=== PATIENT | male | born 1995 | race Caucasian/White ===

== ENCOUNTER 2021-10-12 11:16 | Emergency (ER) | payer SELFPAY ==
[2021-10-12 11:57] VITALS: BP 118/75; PULSE 93; RESP 16; TEMP 36.5; O2SAT 98; BMI 28.2
--- NOTE | 2021-10-12 12:26 | XRR_ITS ---
PROCEDURE INFORMATION: Exam: XR Abdomen Exam date and time: 10/12/2021 12:26 PM Age: 26 years old Clinical indication: Abdominal pain; Localized; Right lower quadrant (rlq); Additional info: Abd pain TECHNIQUE: Imaging protocol: XR of the abdomen. Views: Frontal supine view of the abdomen. 1 View. COMPARISON: CR Chest 1 [place] [id number] 04/27/2018 5:43 PM FINDINGS: Gastrointestinal tract: Normal. No bowel dilation. Bones/joints: Unremarkable. XR/XR KUB portable [id number] IMPRESSION: No acute findings.
--- NOTE | 2021-10-12 12:38 | W.ED.ABDPA2 ---
Documented by User: BEAR Beasley 10/12/21 16:20 HPI - Abdominal Pain General: Chief Complaint: Abdominal Pain Stated Complaint: Abd pain in appendix area Time Seen by Provider: 10/12/21 12:09 History of Present Illness: HPI narrative: Patient states he has had right lower quadrant to right upper quadrant abdominal pain over the last couple days that is progressively worsening. Patient denies any fever chills. Patient does have some nausea. Denies any problems bowel or bladder. Denies any injury. No significant medical history. MD elicited complaint: abdominal pain Onset (ago): day(s) Pain Consistency: constant Location: RUQ and RLQ Severity: mild Quality: aching Radiation: RUQ Migration to: no migration Exacerbating factors: nothing Relieving factors: nothing Associated Symptoms: Reports no associated symptoms; Denies chills, fever(s), nausea and vomiting Review of Systems Const: Denies: fever(s), chills or body aches Eyes: Denies: change in vision or blurry vision ENMT: Denies: throat pain or nasal congestion Card: Denies: chest pain or dyspnea on exertion Resp: Denies: dyspnea, productive cough or non-productive cough GI: Reports: abdominal pain; Denies: nausea or vomiting : Denies: difficulty urinating Musc: Denies: extremity pain Skin/Breast: Denies: rash Neuro: Denies: headache(s) Psych: Denies: anxiety or depression Damir/Lymph: Denies: easy bruising Physical Exam Const: COMMON NORMALS: no acute distress, average body habitus and patient oriented x3 HENMT: COMMON NORMALS: normocephalic HEAD & SCALP: normal to inspection and normocephalic FACE & SINUS: normal facial exam Eye: COMMON NORMALS: conjunctivae normal GENERAL EYE: appearance normal, both eyes and all related structures CONJUNCTIVA: Yes conjunctivae normal Neck/C-Spine: COMMON NORMALS: no JVD Chest: COMMONS NORMALS: normal inspection of the chest Resp: COMMON NORMALS: normal respiratory effort and clear to auscultation bilaterally AUSCULTATION: clear to auscultation bilaterally Cardio: COMMON NORMALS: no JVD, regular rate and regular rhythm RATE: regular rate RHYTHM: regular rhythm GI: INSPECTION: Yes normal to inspection AUSCULTATION: Yes normoactive bowel sounds PALPATION: Yes Tenderness to palpation present (GI) Details: RLQ and RUQ Extremity: COMMON NORMALS: normal to inspection and full ROM Neuro: COMMON NORMALS: patient oriented x3 Course Vital Signs: Vital signs: Vital Signs Temperature 97.8 F 10/12/21 15:30 Pulse Rate 91 10/12/21 15:30 Respiratory Rate 16 10/12/21 15:30 Blood Pressure 121/72 10/12/21 15:30 Pulse Oximetry 99 10/12/21 15:30 MDM - Abdominal Pain MDM Narrative: Medical decision making narrative: Patient presents with right-sided abdominal pain times last couple days. Abdominal pain work-up was initiated and laboratory studies including blood and urine was negative for any concerning findings. KUB and CT of the abdomen were done and CT revealed some mild enteritis, possibly irritable bowel syndrome. Patient denies any history of any abdominal problems previously. Patient declines pain medication. Patient was advised follow-up primary care return here for worsening symptoms drink plenty of fluids and good healthy diet. Lab Data: Labs: Lab Results 10/12/21 10/12/21 10/12/21 13:55 14:00 14:00 WBC 6.0 10^3/uL 10^3/ uL (4.0-10.0) RBC 5.45 10^6/uL H 10 ^6/uL (4.1-5.3) Hgb 15.6 g/dL g/dL (11.7-16.6) Hct 47.5 % % (42.0-52.0) MCV 87.2 fl fl (80-94) MCH 28.6 pg pg (28.0-34.0) MCHC 32.8 g/dL g/dL (30.0-36.0) RDW 14.4 % % (12.1-15.1) Plt Count 306 10^3/cmm 10^3 /cmm (130-400) MPV 9.6 fL fL (7.4-10.4) Neut % (Auto) 50.1 % % Lymph % (Auto) 31.0 % % [place] % (Auto) 12.6 % % Eos % (Auto) 5.3 % % Baso % (Auto) 0.7 % % Neut # (Auto) 3.02 10^3/uL 10^3 /uL (1.8-7.7) Lymph # (Auto) 1.9 10^3/uL 10^3/ uL (0.8-4.8) [place] # (Auto) 0.8 10^3/uL 10^3/ uL (0.2-0.9) Eos # (Auto) 0.3 10^3/uL 10^3/ uL (0.0-0.8) Baso # (Auto) 0.0 10^3/uL 10^3/ uL (0.0-0.1) Nucleated RBC % (a uto) 0 % % Nucleated RBCs # 0.0 /100WBC /100W BC Sodium Cancelled Potassium Cancelled Chloride Cancelled Carbon Dioxide Cancelled Anion Gap Cancelled BUN Cancelled Creatinine Cancelled GFR Calculation Cancelled Glucose Cancelled Calculated Osmolal ity Cancelled Calcium Cancelled Total Bilirubin Cancelled AST Cancelled ALT Cancelled Alkaline Phosphata se Cancelled Total Protein Cancelled Albumin Cancelled Globulin Cancelled Lipase Cancelled Urine Color Yellow (Yellow) Urine Appearance Clear (CLEAR) Urine pH 5 (5-7) Ur Specific Gravit y 1.025 (1.005-1.030) Urine Protein Neg (Negative) Urine Glucose (UA) Norm (Normal) Urine Ketones Negative (Negative) Urine Blood Neg (Negative) Urine Nitrate Negative (Negative) Urine Bilirubin Neg (Negative) Urine Urobilinogen Norm mg/dL mg/dL (Negative) Ur Leukocyte Rosmery ase Negative (Negative) 10/12/21 14:00 WBC RBC Hgb Hct MCV MCH MCHC RDW Plt Count MPV Neut % (Auto) Lymph % (Auto) [place] % (Auto) Eos % (Auto) Baso % (Auto) Neut # (Auto) Lymph # (Auto) [place] # (Auto) Eos # (Auto) Baso # (Auto) Nucleated RBC % (a uto) Nucleated RBCs # Sodium 137 mmol/L mmol/L (136-145) Potassium 5.0 mmol/L mmol/L (3.5-5.1) Chloride 101 mmol/L mmol/L (98-107) Carbon Dioxide 24 mmol/L mmol/L (22-29) Anion Gap 17.0 (5-19) BUN 11 mg/dL mg/dL (6-20) Creatinine 1.0 mg/dL mg/dL (0.7-1.2) GFR Calculation 90.3 mL/min mL/mi n (90-130) Glucose 78 mg/dL mg/dL (65-115) Calculated Osmolal ity 282 mOsm/kg L mOs m/kg (285-295) Calcium 9.0 mg/dL mg/dL (8.5-10.5) Total Bilirubin 0.3 mg/dL mg/dL (0.15-1.2) AST 19 U/L U/L (0-40) ALT 15 U/L U/L (0-41) Alkaline Phosphata se 79 IU/L IU/L (40-130) Total Protein 6.8 g/dL g/dL (6.6-8.7) Albumin 4.3 g/dL g/dL (3.5-5.2) Globulin 2.5 g/dL g/dL (1.3-4.6) Lipase 20 U/L U/L (13-60) Urine Color Urine Appearance Urine pH Ur Specific Gravit y Urine Protein Urine Glucose (UA) Urine Ketones Urine Blood Urine Nitrate Urine Bilirubin Urine Urobilinogen Ur Leukocyte Rosmery ase Discharge Plan Discharge Patient Disposition: Home Clinical Impression: Abdominal pain Qualifiers: Abdominal location: upper abdomen, unspecified Qualified Code(s): R10.10 - Upper abdominal pain, unspecified Condition: Stable Discharge Orders: Discharge ED (Routine); Ordered 10/12/21 Ordered By: Cas Back Discharge Diet: Usual diet Discharge Activity: Increase activity as tolerated Patient Instructions: Abdominal Pain (ED) Activity Restrictions/Additional Instructions: Follow-up your primary care provider or return here for worsening symptoms. Make sure you drink plenty of fluids. You most likely have a viral syndrome was causing inflammation in your colon. Coding Level of Care Code ED Operations Support Manager for Chg Fwd Exam Comprehensive Documented by User: Aydin Light DO 10/15/21 06:18 HPI - Abdominal Pain General: Chief Complaint: Abdominal Pain Stated Complaint: Abd pain in appendix area Time Seen by Provider: 10/12/21 12:09 Course Vital Signs: Vital signs: Vital Signs Temperature 97.8 F 10/12/21 15:30 Pulse Rate 91 10/12/21 15:30 Respiratory Rate 16 10/12/21 15:30 Blood Pressure 121/72 10/12/21 15:30 Pulse Oximetry 99 10/12/21 15:30 MDM - Abdominal Pain MDM Narrative: Medical decision making narrative: Chart reviewed and patient discussed with midlevel. Agree with assessment and plan. Lab Data: Labs: Lab Results 10/12/21 10/12/21 10/12/21 13:55 14:00 14:00 WBC 6.0 10^3/uL 10^3/ uL (4.0-10.0) RBC 5.45 10^6/uL H 10 ^6/uL (4.1-5.3) Hgb 15.6 g/dL g/dL (11.7-16.6) Hct 47.5 % % (42.0-52.0) MCV 87.2 fl fl (80-94) MCH 28.6 pg pg (28.0-34.0) MCHC 32.8 g/dL g/dL (30.0-36.0) RDW 14.4 % % (12.1-15.1) Plt Count 306 10^3/cmm 10^3 /cmm (130-400) MPV 9.6 fL fL (7.4-10.4) Neut % (Auto) 50.1 % % Lymph % (Auto) 31.0 % % [place] % (Auto) 12.6 % % Eos % (Auto) 5.3 % % Baso % (Auto) 0.7 % % Neut # (Auto) 3.02 10^3/uL 10^3 /uL (1.8-7.7) Lymph # (Auto) 1.9 10^3/uL 10^3/ uL (0.8-4.8) [place] # (Auto) 0.8 10^3/uL 10^3/ uL (0.2-0.9) Eos # (Auto) 0.3 10^3/uL 10^3/ uL (0.0-0.8) Baso # (Auto) 0.0 10^3/uL 10^3/ uL (0.0-0.1) Nucleated RBC % (a uto) 0 % % Nucleated RBCs # 0.0 /100WBC /100W BC Sodium Cancelled Potassium Cancelled Chloride Cancelled Carbon Dioxide Cancelled Anion Gap Cancelled BUN Cancelled Creatinine Cancelled GFR Calculation Cancelled Glucose Cancelled Calculated Osmolal ity Cancelled Calcium Cancelled Total Bilirubin Cancelled AST Cancelled ALT Cancelled Alkaline Phosphata se Cancelled Total Protein Cancelled Albumin Cancelled Globulin Cancelled Lipase Cancelled Urine Color Yellow (Yellow) Urine Appearance Clear (CLEAR) Urine pH 5 (5-7) Ur Specific Gravit y 1.025 (1.005-1.030) Urine Protein Neg (Negative) Urine Glucose (UA) Norm (Normal) Urine Ketones Negative (Negative) Urine Blood Neg (Negative) Urine Nitrate Negative (Negative) Urine Bilirubin Neg (Negative) Urine Urobilinogen Norm mg/dL mg/dL (Negative) Ur Leukocyte Rosmery ase Negative (Negative) 10/12/21 14:00 WBC RBC Hgb Hct MCV MCH MCHC RDW Plt Count MPV Neut % (Auto) Lymph % (Auto) [place] % (Auto) Eos % (Auto) Baso % (Auto) Neut # (Auto) Lymph # (Auto) [place] # (Auto) Eos # (Auto) Baso # (Auto) Nucleated RBC % (a uto) Nucleated RBCs # Sodium 137 mmol/L mmol/L (136-145) Potassium 5.0 mmol/L mmol/L (3.5-5.1) Chloride 101 mmol/L mmol/L (98-107) Carbon Dioxide 24 mmol/L mmol/L (22-29) Anion Gap 17.0 (5-19) BUN 11 mg/dL mg/dL (6-20) Creatinine 1.0 mg/dL mg/dL (0.7-1.2) GFR Calculation 90.3 mL/min mL/mi n (90-130) Glucose 78 mg/dL mg/dL (65-115) Calculated Osmolal ity 282 mOsm/kg L mOs m/kg (285-295) Calcium 9.0 mg/dL mg/dL (8.5-10.5) Total Bilirubin 0.3 mg/dL mg/dL (0.15-1.2) AST 19 U/L U/L (0-40) ALT 15 U/L U/L (0-41) Alkaline Phosphata se 79 IU/L IU/L (40-130) Total Protein 6.8 g/dL g/dL (6.6-8.7) Albumin 4.3 g/dL g/dL (3.5-5.2) Globulin 2.5 g/dL g/dL (1.3-4.6) Lipase 20 U/L U/L (13-60) Urine Color Urine Appearance Urine pH Ur Specific Gravit y Urine Protein Urine Glucose (UA) Urine Ketones Urine Blood Urine Nitrate Urine Bilirubin Urine Urobilinogen Ur Leukocyte Rosmery ase Discharge Plan Discharge Patient Disposition: Home Clinical Impression: Abdominal pain Qualifiers: Abdominal location: upper abdomen, unspecified Qualified Code(s): R10.10 - Upper abdominal pain, unspecified Condition: Stable Discharge Orders: Discharge ED (Routine); Ordered 10/12/21 Ordered By: Cas Back Discharge Diet: Usual diet Discharge Activity: Increase activity as tolerated Patient Instructions: Abdominal Pain (ED) Activity Restrictions/Additional Instructions: Follow-up your primary care provider or return here for worsening symptoms. Make sure you drink plenty of fluids. You most likely have a viral syndrome was causing inflammation in your colon. Coding Level of Care Code ED Operations Support Manager for Amandag Fwd Exam Comprehensive
--- NOTE | 2021-10-12 13:03 | CT_ITS ---
WS: [id number] CT ABDOMEN AND PELVIS WITH CONTRAST HISTORY: RIGHT lower quadrant pain for 4 days or increasing. TECHNIQUE: Imaging performed of the abdomen and pelvis with IV contrast. Single phase imaging of the abdomen. Coronal and sagittal reformats are submitted. All CT scans at [facility] use at [address] one of these dose optimization techniques: automated exposure control; mA and/or kV adjustment per patient size (includes targeted exams where dose is matched to clinical indication); or iterative re construction. IV CONTRAST: Omnipaque 300; 95 mL IV. Oral contrast: No DLP: 1915.14 mGy.cm COMPARISON: 02/10/2014 Lower thorax: Lung bases are clear. Heart is normal size. No hiatal hernia. Liver/biliary system: Normal size liver. Mild hepatic steatosis along the falciform ligament. There i s a small cyst medial segment LEFT lobe of the liver. Normal portal vein. Gallbladder: Normal. No gallstones or wall thickening. No pericholecystic fluid. Pancreas: Normal size pancreas and pancreatic duct. No adjacent inflammation. Spleen: Normal size spleen. No mass or infarct. Adrenal glands: Normal. Right kidney: Normal. Left kidney: Normal. Aorta: Normal. Lymphadenopathy: There are several very small mesenteric lymph nodes. No adenopathy. Free fluid: None. GI tract: The appendix is normal and well visualized. There is very mild thickening involving the dis virgen small bowel loops with mild hyperemia. No free fluid. No increase fluid within the small bowel. Abdominal wall: Unremarkable abdominal wall. No hernia. Pelvis: Nondistended urinary bladder. No free fluid or adenopathy. Bones: Mild LEFT curvature lumbar spine. CT/CT abdomen pelvis w con* [id number] IMPRESSION: 1. Normal appendix. 2. Mild wall thickening and edema within the distal small bowel. Findings are most consistent with acute mild enteritis. Consider inflammatory bowel disease is a possible etiology. 3. No free fluid.
[2021-10-12] MEDS: iohexol 300 mg/mL 100 mL Btl IV (14:02)
[2021-10-12 14:07] LABS: Add Urine Microscopic? NO; Charge for UA Resulting for Rev
[2021-10-12 14:18] LABS: Bilirubin Urine Neg (Negative); Blood Urine Neg (Negative); Glucose Urine UA Norm (Normal); Ketones Urine Negative (Negative); Leukocyte Esterase Urine Negative (Negative); Nitrate Urine Negative (Negative); Protein Urine Neg (Negative); Specific Gravity, Urine 1.025 (1.005-1.030); Urine Appearance Clear (CLEAR); Urine Color Yellow (Yellow); Urobilinogen Urine Norm (Negative); pH Urine 5 (5-7)
[2021-10-12 14:22] LABS: Basophils % 0.7 %; Eosinophils # 0.3 10^3/uL (0.0-0.8); Eosinophils % 5.3 %; Hematocrit 47.5 % (42.0-52.0); Hemoglobin 15.6 g/dL (11.7-16.6); Lymphocytes # 1.9 10^3/uL (0.8-4.8); Mean Corpuscular HGB Conc 32.8 g/dL (30.0-36.0); Mean Corpuscular Hemoglobin 28.6 pg (28.0-34.0); Mean Corpuscular Volume 87.2 fl (80-94); Mean Platelet Volume 9.6 fL (7.4-10.4); Monocytes # 0.8 10^3/uL (0.2-0.9); Monocytes % 12.6 %; Neutrophils # 3.02 10^3/uL (1.8-7.7); Neutrophils % 50.1 %; Nucleated Red Blood Cells % 0 %; Platelet Count 306 10^3/cmm (130-400); Red Blood Count 5.45 10^6/uL (4.1-5.3); Red Cell Distribution Width 14.4 % (12.1-15.1)
[2021-10-12 15:01] LABS: Alanine Aminotransferase 15 U/L (0-41); Albumin Level 4.3 g/dL (3.5-5.2); Alkaline Phosphatase 79 IU/L (40-130); Aspartate Amino Transferase 19 U/L (0-40); Blood Urea Nitrogen 11 mg/dL (6-20); Carbon Dioxide 24 mmol/L (22-29); Chloride 101 mmol/L (98-107); Globulin 2.5 g/dL (1.3-4.6); Glomerular Filtration Rate 90.3 mL/min (90-130); Glucose 78 mg/dL (65-115); Lipase 20 U/L (13-60); Osmolality Calculated 282 mOsm/kg (285-295); Sodium 137 mmol/L (136-145); Total Bilirubin 0.3 mg/dL (0.15-1.2); Total Protein 6.8 g/dL (6.6-8.7)
[2021-10-12 15:30] VITALS: BP 121/72; PULSE 91; RESP 16; TEMP 36.6; O2SAT 99
== END 2021-10-12 15:31 | disposition home or self-care (01) ==
PROVIDERS: Emergency Provider Nurse Practitioner Family
DX: R10.10 Upper abdominal pain, unspecified (principal)
CPT/HCPCS: 74018; 74177; 80053; 81003; 83690; 85025; 99282; Q9967

== ENCOUNTER → 2022-02-16 16:56 | Outpatient (BNVA) | payer OTHER, SELFPAY | PROVIDERS: PCP Nurse Practitioner Family; Visit Provider Nurse Practitioner Family | DX: F32.9 Major depressive disorder, single episode, unspecified (principal); F42.9 Obsessive-compulsive disorder, unspecified; T38.7X5A Adverse effect of androgens and anabolic congeners, initial encounter; F41.9 Anxiety disorder, unspecified; R21 Rash and other nonspecific skin eruption | CPT/HCPCS: 80053; 80061; 84402; 84403; 84443 ==

== ENCOUNTER 2022-03-27 12:33 | Inpatient (IN) | payer SELFPAY ==
[2022-03-27 12:37] VITALS: BP 146/80; PULSE 96; RESP 16; TEMP 36.9; O2SAT 97; BMI 29.1
--- NOTE | 2022-03-27 13:03 | ED.C_ITS ---
HPI - Psych General: Chief Complaint: Psychiatric Symptoms Stated Complaint: MHE Time Seen by Provider: 03/27/22 12:38 PFSH ED PFSH: Social History Smoking and tobacco status: never smoked Course Vital Signs: Vital signs: Vital Signs Temperature 98.4 F 03/27/22 12:37 Pulse Rate 96 03/27/22 12:37 Respiratory Rate 16 03/27/22 12:37 Blood Pressure 146/80 03/27/22 12:37 Pulse Oximetry 97 03/27/22 12:37 Discharge Plan Discharge Condition: Stable Prescriptions: No Action sertraline [Zoloft] 100 mg tablet 100 mg PO DAILY 0RF buspirone 10 mg tablet 10 mg PO TID 30 Days Qty: 90 0RF testosterone cypionate [Depo-Testosterone] 200 mg/mL oil 100 mg SUBCUT Q7D Qty: 1 0RF testosterone cypionate [Depo-Testosterone] 100 mg/mL oil 50 mg IM Q7D 14 Days Qty: 1 0RF Referrals: Nakita Hoskins APN [Primary Care Provider] - Coding Level of Care Code ED Watch Technician for Niki Lance
--- NOTE | 2022-03-27 13:04 | ED_ITS ---
HPI - General Adult General: Chief complaint: Psychiatric Symptoms Stated complaint: MHE Time Seen by Provider: 03/27/22 12:38 History of Present Illness: [26]yo patient w/ hx of depression and anxiety presenting to the ER for anxiety and suicidal ideation. She tells me that over the last week, he has had significant thoughts of hurting himself. Patient does not have any active plan. Patient takes sertraline 100 mg daily and buspirone 10 mg 3 times daily. Patient has been compliant with his meds but reports that because of home and work situation, his depression has worsened. On arrival, the patient is AAOx3 and cooperative with my evaluation. No focal complaints of chest pain, shortness of breath, palpitations, N/V, focal GI/ complaints. Currently denies HI. No complaints of hallucinations. Onset: acute on chronic Duration: ongoing Location: home Severity: severe Associated symptoms: Deny chest pain, dyspnea, nausea, rash, palpitations or vomiting Review of Systems Const: Denies: fever(s) or chills Eyes: Denies: change in vision ENMT: Denies: mouth pain Card: Denies: chest pain or palpitations Resp: Denies: dyspnea or non-productive cough GI: Denies: abdominal pain, nausea, vomiting or diarrhea : Denies: dysuria Musc: Denies: extremity pain Skin/Breast: Denies: rash or new lesions Neuro: Denies: weakness in extremities Psych: Reports: anxiety, depression and suicidal ideation Damir/Lymph: Denies: easy bruising PFSH ED PFSH: Medical History Anxiety Depression Social History Smoking and tobacco status: never smoked Alcohol intake: never Substance/Drug Use: never Physical Exam Const: COMMON NORMALS: alert HENMT: COMMON NORMALS: atraumatic HEAD & SCALP: atraumatic MOUTH: moist mucous membranes not abnormal Eye: COMMON NORMALS: EOMs intact bilaterally and conjunctivae normal CONJUNCTIVA: Yes conjunctivae normal Neck/C-Spine: COMMON NORMALS: full ROM and supple Resp: COMMON NORMALS: normal respiratory effort and clear to auscultation bilaterally AUSCULTATION: clear to auscultation bilaterally Cardio: COMMON NORMALS: regular rate RATE: regular rate GI: COMMON NORMALS: Soft to palpation and non-tender PALPATION: Yes Soft to palpation Extremity: COMMON NORMALS: full ROM Neuro: SENSORIUM/ORIENTATION: Yes alert MOTOR EXAM: No Abnormal motor strength present and Other motor observations present (no focal motor deficits) Psych: COMMON NORMALS: speech normal SPEECH: Yes normal speech MOOD & AFFECT: Yes depressed mood Course Vital Signs: Vital signs: Vital Signs Temperature 98.4 F 03/27/22 12:37 Pulse Rate 96 03/27/22 14:40 Respiratory Rate 16 03/27/22 12:37 Blood Pressure 140/87 03/27/22 14:40 Pulse Oximetry 95 03/27/22 14:40 MDM - General Adult Medical Decision Making [26]yo patient w/ hx of depression and anxiety presenting for depression with SI. HDS, exam within normal limit Thoughts are linear and organized, and the patient has no AH/VH, or HI. Clinically the patient displays no overt toxidrome; they are well appearing, with low suspicion for toxic ingestion given history and exam. Symptoms unlikely 2/2 anemia, hypothyroidism, infection, or ICH. Workup: CBC, CMP, Lipase, salicylate/tylenol, UDS Lab findings: wnl, +marijuana in the urine [2:30pm] On reassessment, labs and workup wnl. Patient is hemodynamically stable with no acute medical complaints. Case discussed with psychiatric provider Dr. Bunn at [facility] psych inpatient with recommendation for admission Disposition: Psych Lab Data : 03/27/22 12:51 03/27/22 12:51 Laboratory Results WBC 6.5 10^3/uL (4.0-10.0) 03/27/22 12:51 RBC 5.92 10^6/uL (4.1-5.3) H 03/27/22 12:51 Hgb 16.6 g/dL (11.7-16.6) 03/27/22 12:51 Hct 49.0 % (42.0-52.0) 03/27/22 12:51 MCV 82.8 fl (80-94) 03/27/22 12:51 MCH 28.0 pg (28.0-34.0) 03/27/22 12:51 MCHC 33.9 g/dL (30.0-36.0) 03/27/22 12:51 RDW 13.9 % (12.1-15.1) 03/27/22 12:51 Plt Count 424 10^3/cmm (130-400) H 03/27/22 12:51 MPV 9.7 fL (7.4-10.4) 03/27/22 12:51 Neut % (Auto) 57.1 % 03/27/22 12:51 Lymph % (Auto) 34.2 % 03/27/22 12:51 [place] % (Auto) 5.6 % 03/27/22 12:51 Eos % (Auto) 2.2 % 03/27/22 12:51 Baso % (Auto) 0.6 % 03/27/22 12:51 Neut # (Auto) 3.70 10^3/uL (1.8-7.7) 03/27/22 12:51 Lymph # (Auto) 2.2 10^3/uL (0.8-4.8) 03/27/22 12:51 [place] # (Auto) 0.4 10^3/uL (0.2-0.9) 03/27/22 12:51 Eos # (Auto) 0.1 10^3/uL (0.0-0.8) 03/27/22 12:51 Baso # (Auto) 0.0 10^3/uL (0.0-0.1) 03/27/22 12:51 Nucleated RBC % (auto) 0 % 03/27/22 12:51 Nucleated RBCs # 0.0 /100WBC 03/27/22 12:51 Sodium 138 mmol/L (136-145) 03/27/22 12:51 Potassium 3.8 mmol/L (3.5-5.1) 03/27/22 12:51 Chloride 103 mmol/L (98-107) 03/27/22 12:51 Carbon Dioxide 25 mmol/L (22-29) 03/27/22 12:51 Anion Gap 13.8 (5-19) 03/27/22 12:51 BUN 10 mg/dL (6-20) 03/27/22 12:51 Creatinine 1.1 mg/dL (0.7-1.2) 03/27/22 12:51 GFR Calculation 80.9 mL/min (90-130) L 03/27/22 12:51 Glucose 92 mg/dL (65-115) 03/27/22 12:51 Calculated Osmolality 285 mOsm/kg (285-295) 03/27/22 12:51 Calcium 9.0 mg/dL (8.5-10.5) 03/27/22 12:51 Total Bilirubin 0.7 mg/dL (0.15-1.2) 03/27/22 12:51 AST 18 U/L (0-40) 03/27/22 12:51 ALT 19 U/L (0-41) 03/27/22 12:51 Alkaline Phosphatase 68 IU/L (40-130) 03/27/22 12:51 Total Protein 7.6 g/dL (6.6-8.7) 03/27/22 12:51 Albumin 4.4 g/dL (3.5-5.2) 03/27/22 12:51 Globulin 3.2 g/dL (1.3-4.6) 03/27/22 12:51 Lipase 21 U/L (13-60) 03/27/22 12:51 Salicylates < 0.3 mg/dL (3-10) L 03/27/22 12:51 Urine Opiates Screen Negative ng/mL (Negative) 03/27/22 13:10 Acetaminophen < 5.0 ug/mL (10-30) L 03/27/22 12:51 Ur Barbiturates Screen Negative ng/mL (Negative) 03/27/22 13:10 Ur Phencyclidine Scrn Negative ng/mL (Negative) 03/27/22 13:10 Ur Amphetamines Screen Negative ng/mL (Negative) 03/27/22 13:10 U Benzodiazepines Scrn Negative ng/mL (Negative) 03/27/22 13:10 Urine Cocaine Screen Negative ng/mL (Negative) 03/27/22 13:10 U Marijuana (THC) Screen Positive ng/mL (Negative) H 03/27/22 13:10 Discharge Plan Discharge Condition: Stable Prescriptions: No Action sertraline [Zoloft] 100 mg tablet 100 mg PO DAILY 0RF buspirone 10 mg tablet 10 mg PO TID 30 Days Qty: 90 0RF testosterone cypionate [Depo-Testosterone] 200 mg/mL oil 100 mg SUBCUT Q7D Qty: 1 0RF testosterone cypionate [Depo-Testosterone] 100 mg/mL oil 50 mg IM Q7D 14 Days Qty: 1 0RF Referrals: Hoskins,NINOSKA Mace [Primary Care Provider] - Coding Level of Care Code ED Night Worker for Chg Fwd Exam Comprehensive
[2022-03-27 13:25] LABS: Basophils % 0.6 %; Eosinophils # 0.1 10^3/uL (0.0-0.8); Eosinophils % 2.2 %; Hemoglobin 16.6 g/dL (11.7-16.6); Lymphocytes # 2.2 10^3/uL (0.8-4.8); Lymphocytes % 34.2 %; Mean Corpuscular HGB Conc 33.9 g/dL (30.0-36.0); Mean Corpuscular Volume 82.8 fl (80-94); Mean Platelet Volume 9.7 fL (7.4-10.4); Monocytes # 0.4 10^3/uL (0.2-0.9); Monocytes % 5.6 %; Neutrophils % 57.1 %; Nucleated Red Blood Cells % 0 %; Platelet Count 424 10^3/cmm (130-400); Red Blood Count 5.92 10^6/uL (4.1-5.3); Red Cell Distribution Width 13.9 % (12.1-15.1); White Blood Count 6.5 10^3/uL (4.0-10.0)
[2022-03-27 13:47] LABS: Alanine Aminotransferase 19 U/L (0-41); Albumin Level 4.4 g/dL (3.5-5.2); Alkaline Phosphatase 68 IU/L (40-130); Anion Gap 13.8 (5-19); Aspartate Amino Transferase 18 U/L (0-40); Blood Urea Nitrogen 10 mg/dL (6-20); Carbon Dioxide 25 mmol/L (22-29); Chloride 103 mmol/L (98-107); Globulin 3.2 g/dL (1.3-4.6); Glomerular Filtration Rate 80.9 mL/min (90-130); Glucose 92 mg/dL (65-115); Lipase 21 U/L (13-60); Osmolality Calculated 285 mOsm/kg (285-295); Potassium 3.8 mmol/L (3.5-5.1); Sodium 138 mmol/L (136-145); Total Bilirubin 0.7 mg/dL (0.15-1.2); Total Protein 7.6 g/dL (6.6-8.7)
[2022-03-27 13:48] LABS: Acetaminophen < 5.0 ug/mL (10-30); Salicylate < 0.3 mg/dL (3-10)
[2022-03-27 14:07] LABS: Amphetamines Screen Urine Negative (Negative); Barbiturates Screen Urine Negative (Negative); Benzodiazepines Screen Urine Negative (Negative); Cocaine Screen Urine Negative (Negative); Opiate Screen Urine Negative (Negative); PCP Screen Urine Negative (Negative); THC Screen Urine Positive (Negative)
[2022-03-27 14:40] VITALS: BP 140/87; PULSE 96; O2SAT 95
[2022-03-27 16:30] VITALS: BP 119/75; PULSE 84; O2SAT 96
[2022-03-27] MEDS: BuSPIRONE 10 mg Tablet PO (21:05)
[2022-03-27] MEDS: trazodone 50 mg Tablet PO (21:05)
[2022-03-27] MEDS: hyDROXYzine 25 mg Capsule 50 MG PO (21:05)
[2022-03-27 21:37] VITALS: BP 139/75; PULSE 77; RESP 16; TEMP 36.7; O2SAT 95
[2022-03-28 06:00] VITALS: BP 106/73; PULSE 83; RESP 18; TEMP 36.4; O2SAT 96
[2022-03-28] MEDS: sertraline 100 mg Tablet PO (08:49)
[2022-03-28] MEDS: BuSPIRONE 10 mg Tablet PO ×3 (08:49→20:57)
[2022-03-28 14:00] VITALS: BP 130/87; PULSE 82; RESP 18; TEMP 36.6; O2SAT 95
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
[2022-03-28 20:27] VITALS: BP 146/76; PULSE 100; RESP 16; TEMP 36.6; O2SAT 95
[2022-03-28] MEDS: trazodone 50 mg Tablet PO (20:57)
[2022-03-28] MEDS: hyDROXYzine 25 mg Capsule 50 MG PO (20:57)
[2022-03-29 06:00] VITALS: BP 120/73; PULSE 82; RESP 14; TEMP 36.8; O2SAT 94
[2022-03-29] MEDS: BuSPIRONE 10 mg Tablet PO ×3 (09:38→21:00)
[2022-03-29] MEDS: sertraline 100 mg Tablet PO (09:38)
[2022-03-29 14:00] VITALS: BP 116/61; PULSE 93; RESP 16; TEMP 36.6; O2SAT 96
--- NOTE | 2022-03-29 17:13 | W.PM.NPUPNS ---
Subjective NPU Subjective: Patient presents today reporting that he continues to be focused on wanting to make sure that he gets out in time for the family's vacation. We discussed the fact that the medication does not initiate on Sunday and at this point our focus is on his wellness. We discussed the fact that there is some concern that the insurance may be not in place. And not be paying for this stay. Also discussed with mom her concerns and advised her that she could take any concerns to be director Seth. We discussed the risk benefits and alternatives of increasing his Zoloft to 150 mg p.o. every morning and he understood and agreed to proceed as is documented in this note. Mental Status Exam MSE Comments: This is a well nourished, well developed white male in hospital scrubs with adequate grooming and eye contact. No abnormal movements. Cooperative with exam in no acute distress. Speech was normal rate and volume. Mood described as better today, affect appeared somewhat restrictive and odd. Thought process, organized. Thought content: patient denies homicidal ideation and reports suicidal ideation yesterday which has minimized today, no delusions reported or noted, and denies auditory or visual hallucinations. Attention and concentration are intact and memory appeared reliable though none were formally tested. He is alert and oriented three times. Insight and judgment are fair. Impulse control is fair. Vitals/I&O/Wt Last Vital Signs Temp 98 F 03/29/22 14:00 Pulse 93 03/29/22 14:00 Resp 16 03/29/22 14:00 BP 116/61 03/29/22 14:00 Pulse Ox 96 03/29/22 14:00 Data NPU : 03/27/22 12:51 03/27/22 12:51 A&P Assessment and plan (1) Generalized anxiety disorder: Status: Acute (2) Rash: Status: Acute (3) Testosterone adverse reaction: Status: Acute (4) Major depression: Status: Acute Plan This is a 26 year white male with a history of panic attacks, generalized anxiety disorder and major depressive disorder, severe, recurrent, without psychotic features, who presents after a recent break up, endorsing suicidal ideation when he was admitted but reporting improvement today, wanting to discharge and continue outpatient treatment. 1.? Continue current medications. Except increase Zoloft to 150 mg p.o. daily 2.? Encourage individual, group and milieu therapy 3.? Continue q-15 minute check for safety 4.? Recommend sober living treatment at the highest level of care to which the patient is willing to commit. Involuntary Hold Information 96 Hour Hold: 96 Hour Involuntary Admission: No Attestations NPU Medical Necessity Statement*: Inpatient hospitalization is medically necessary and the clinically appropriate intervention at this time. We will monitor medications and make changes as indicated.. Likely length of stay is 1-3 days. Coding Level of Care Code Acute Band Scroll Saw Operator for [facility] Fwd Diagnoses Generalized anxiety disorder F41.1 Rash R21 Testosterone adverse reaction T38.7X5A Major depression F32.9
[2022-03-29 20:07] VITALS: BP 116/76; PULSE 87; RESP 16; TEMP 36.8; O2SAT 96
[2022-03-29] MEDS: trazodone 50 mg Tablet PO (23:02)
[2022-03-30 06:00] VITALS: BP 121/74; PULSE 79; RESP 17; TEMP 36.7; O2SAT 98
[2022-03-30] MEDS: BuSPIRONE 10 mg Tablet PO ×3 (08:57→20:24)
[2022-03-30] MEDS: sertraline 100 mg Tablet 150 MG PO (08:57)
[2022-03-30 14:00] VITALS: BP 132/81; PULSE 88; RESP 17; TEMP 36.7; O2SAT 99
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
[2022-03-30 20:18] VITALS: BP 121/77; PULSE 107; RESP 20; TEMP 36.6; O2SAT 96
[2022-03-30] MEDS: trazodone 50 mg Tablet PO (20:24)
--- NOTE | 2022-03-30 20:56 | PC.NURSE ---
PRN PT REQUESTED MEDICATION TO HELP HIM SLEEP. TRAZADONE WAS GIVEN.
[2022-03-31 06:00] VITALS: BP 119/77; PULSE 83; RESP 16; TEMP 36.6; O2SAT 98
[2022-03-31] MEDS: sertraline 100 mg Tablet 150 MG PO (10:50)
[2022-03-31] MEDS: BuSPIRONE 10 mg Tablet PO ×2 (10:50→15:50)
--- NOTE | 2022-03-31 13:17 | PC.NURSE ---
NEW ORDERS RECEIVED FROM DR. ANTON/BEAR TO DC ZOLOFT 150 MG AND INCREASE ZOLOFT TO 200 MG PO DAILY. ORDERS PLACED IN [employer]. PT EDUCATED ON DOSE CHANGE. VERBALIZED UNDERSTANDING.
[2022-03-31 13:43] VITALS: BP 123/75; PULSE 89; RESP 16; TEMP 36.4; O2SAT 96
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
[2022-03-31 16:26] VITALS: BP 123/75; PULSE 89; RESP 16; TEMP 36.4; O2SAT 96
== END 2022-03-31 16:41 | disposition home or self-care (01) | DRG 880 ==
LOC: ER 13:03 → NP 17:05
PROVIDERS: Admitting Provider Psychiatry & Neurology Psychiatry; Emergency Provider Emergency Medicine; PCP Nurse Practitioner Family; Visit Provider Psychiatry & Neurology Psychiatry
DX: F41.1 Generalized anxiety disorder (principal); R45.851 Suicidal ideations; F32.A Depression, unspecified; R21 Rash and other nonspecific skin eruption; F42.9 Obsessive-compulsive disorder, unspecified; F41.0 Panic disorder [episodic paroxysmal anxiety]; F65.9 Paraphilia, unspecified; Z63.5 Disruption of family by separation and divorce
CPT/HCPCS: 80053; 80306; 80307; 83690; 85025; 97150; 97165; 99285

== ENCOUNTER → 2023-02-23 13:37 | Outpatient (BNVA) | payer SELFPAY | PROVIDERS: PCP Nurse Practitioner Family; Visit Provider Nurse Practitioner Family | DX: Z79.899 Other long term (current) drug therapy (principal); F32.9 Major depressive disorder, single episode, unspecified; F42.9 Obsessive-compulsive disorder, unspecified; F41.1 Generalized anxiety disorder | CPT/HCPCS: 80053; 80307; 84402; 84403 ==